=== PATIENT | male | born 1975 | race Caucasian/White ===

== ENCOUNTER 2021-07-13 15:12 | Emergency (ER) | payer OTHER ==
[~2021-07-13] VITALS: Ht 167.6 cm; Wt 65.8 kg
--- NOTE | 2021-07-13 15:29 | NUR ---
BIB [facility],C/O HEADACHE SINCE LAST NIGHT ASSOCIATED WITH TACHYCARDIA. PT IS ATTACHED TO MONITOR, A&OX4, NO RESPIRATORY DISTRESS NOTED. AWAITING MD CARTER.
[2021-07-13 15:42] VITALS: BP 137/85
[2021-07-13] MEDS ORDERED: METO-295 PO (16:20)
[2021-07-13] MEDS ORDERED: SUMA100T16 PO (16:20)
[2021-07-13] MEDS ORDERED: PROCHLORPERAZINE EDISYLATE 10 MG/2 ML VIAL ONE (16:28)
[2021-07-13] MEDS ORDERED: SUMATRIPTAN SUCCINATE 6 MG/0.5 ML VIAL SQ ONE ×2 (16:28→16:30)
[2021-07-13] MEDS ORDERED: PROCHLORPERAZINE EDISYLATE 10 MG/2 ML VIAL IM ONE (16:30)
== END 2021-07-13 16:45 | disposition home or self-care (01) ==
LOC: ER 15:15
DX: R51.9 Headache, unspecified (principal); Z88.0 Allergy status to penicillin; Z79.899 Other long term (current) drug therapy
CPT/HCPCS: 93005; 96372 ×2; 99284; J0780; J3030

== ENCOUNTER 2021-07-19 14:13 | Emergency (ER) | payer OTHER ==
[~2021-07-19] VITALS: Ht 167.6 cm; Wt 72.6 kg
[~2021-07-19 14:13] MED LIST: METO-295 PO; SUMA100T16 PO
--- NOTE | 2021-07-19 14:35 | NUR ---
LU RA93 "From Home Palpitations was recently discharged from [address] PLACED ON BED, AAOX4, ATTACHED TO MONITOR NORMAL SINUS RHYTYM, SATURATING AT 97% RA.
--- NOTE | 2021-07-19 14:36 | NUR ---
AT BED SIDE
--- NOTE | 2021-07-19 14:40 | NUR ---
BLOOD DRAWN AND SENT TO LAB
[2021-07-19] MEDS ORDERED: IV NS 0.9% 1,000 ML BAG IV ONE (15:00)
--- NOTE | 2021-07-19 15:00 | NUR ---
X-RAY TECH. AT BED SIDE
[2021-07-19 15:01] LABS: BASOPHILS # (AUTO) 0.1 K/uL (0.0-0.2); BASOPHILS % (AUTO) 0.8 % (0.0-2.0); EOSINOPHILS % (AUTO) 0.9 % (0.0-6.0); HEMATOCRIT 41 % (39-51); LYMPHOCYTES # (AUTO) 1.8 K/uL (0.8-4.8); LYMPHOCYTES % (AUTO) 15.8 % (20.0-44.0); MEAN CORPUSCULAR HGB CONC 34 g/dl (31.0-36.0); MEAN CORPUSCULAR VOLUME 100 fL (80-96); MONOCYTES # (AUTO) 0.4 K/uL (0.1-1.30); MONOCYTES % (AUTO) 3.3 % (2.0-12.0); NEUTROPHILS # (AUTO) 8.8 K/uL (1.8-8.9); NEUTROPHILS % (AUTO) 79.2 % (43.0-81.0); PLATELET COUNT (AUTO) 148 K/uL (150-450); RED BLOOD CELL COUNT(AUTO) 4.14 MIL/uL (4.5-6.0); WHITE BLOOD COUNT (AUTO) 11.1 K/uL (4.3-11.0)
[2021-07-19 15:46] LABS: ALANINE AMINOTRANSFERASE 108 U/L (12-78); ALBUMIN 3.2 g/dL (3.4-5.0); ALKALINE PHOSPHATASE 320 U/L (46-116); ASPARTATE AMINOTRANSFERASE 341 U/L (15-37); BILIRUBIN,DIRECT 2.4 mg/dL (0.0-0.2); BILIRUBIN,TOTAL 3.6 mg/dL (0.2-1.0); CALCIUM, SERUM 8.8 mg/dL (8.5-10.1); CARBON DIOXIDE 26 mmol/L (21-32); CHLORIDE 97 mmol/L (98-107); CREATININE 0.7 mg/dL (0.6-1.3); POTASSIUM 3.6 mmol/L (3.5-5.1); SODIUM SERUM 137 mmol/L (136-145); TOTAL PROTEIN, SERUM 9.1 g/dL (6.4-8.2); UREA NITROGEN, BLOOD 3 mg/dL (7-18)
--- NOTE | 2021-07-19 15:51 | NUR ---
SWAB FOR COVID19 SENT TO LAB
[2021-07-19 15:57] LABS: GLUCOSE 43 mg/dL (74-106)
[2021-07-19] MEDS ORDERED: LORAZEPAM INJ 2 MG/ML VIAL ONE (15:57)
[2021-07-19] MEDS ORDERED: LORAZEPAM INJ 2 MG/ML VIAL IV ONE ×2 (16:00)
[2021-07-19] MEDS ORDERED: DEXTROSE 50%-WATER 50 ML DISP.SYRIN IV ONE (16:00)
[2021-07-19] MEDS ORDERED: DEXTROSE 50%-WATER 50 ML DISP.SYRIN ONE (16:01)
[2021-07-19] MEDS ORDERED: LORA-259 PO (17:31)
--- NOTE | 2021-07-19 17:35 | NUR ---
IV removed. Catheter intact and site benign. Pressure and 4x4 applied to site. No bleeding noted.Patient discharged to home in stable condition. Written and verbal after care instructions given. Patient verbalizes understanding of instruction.
[2021-07-19 17:50] VITALS: BP 120/85
== END 2021-07-19 17:35 | disposition home or self-care (01) ==
LOC: ER 14:14
DX: R00.2 Palpitations (principal); R74.8 Abnormal levels of other serum enzymes; F10.10 Alcohol abuse, uncomplicated; F41.9 Anxiety disorder, unspecified; Z20.822 Contact with and (suspected) exposure to COVID-19
CPT/HCPCS: 36415; 71045; 80048; 80076; 82962; 83690; 84484; 85025; 85730; 87426; 93005; 96361; 96374; 96375; 99285; C9803; J2060; J7030